=== PATIENT | female | born 1990 | race African-American/Black ===

== ENCOUNTER 2016-07-17 03:59 | Emergency (ER) | payer OTHER ==
[~2016-07-17 03:59] MED LIST: BACTRIM DS TABL1 TA1 PO; DEBROX15 M1 OT; DOXYCYCLINE150 MG PO; ZOFRANODT PO
[2016-07-20 05:22] LABS: CHLAMYDIA TRACH Not Detected (Not Detected); N GONOR Not Detected (Not Detected)
== END 2016-07-17 05:07 | disposition home or self-care (01) ==
LOC: CED 03:59
PROVIDERS: Emergency Medicine
DX: R10.33 Periumbilical pain (principal); N89.8 Other specified noninflammatory disorders of vagina; Z88.0 Allergy status to penicillin
CPT/HCPCS: 84703; 87491; 87591; 87808; 87905; 96372; 99284; J0696

== ENCOUNTER 2016-09-14 14:51 | Emergency (ER) | payer OTHER ==
--- NOTE | ~2016-09-14 | CR63 ---
[facility] A Service of [facility] / [facility] RADIOLOGY TEXT RESULTS PATIENT: SURAJ CHAPMAN LOCATION: [facility] : 86 UNIT #: [id number] AGE: [address]: Anamika Roberts SEX: F ORDER DR: [id number] [facility]. [place], [place] [address] [id number] E MR#: [id number] Acc #: [id number] NAME: SURAJ CHAPMAN : 1990 SEX: F STUDY DATE/TIME: 09/14/2016 14:38 UNIT: [facility] ROOM: STUDY DESCRIPTION: CR Chest 2 View Attending Physician: Anamika Roberts P.A.-C. Ordering Physician: Anamika Roberts P.A.-C. MEDICAL IMAGING REPORT This report is preliminary unless electronic signature is present EXAM Chest x-ray, 09/14. INDICATION Cough, congestion, shortness of air started yesterday. COMPARISON 07/14/2015 FINDINGS PA and lateral examination of the chest upright shows a good expansion of the parenchyma with a normal distribution of the pulmonary vascularity. There is no indication of congestion, effusion, infiltrate, tumor, or nodular density. The pleural reflections and diaphragmatic contours are normal. The cardiac silhouette and mediastinal anatomy is within normal limits. IMPRESSION Normal chest. Dictated by... Pro Swift Jr., M.D. THIS IS AN ELECTRONICALLY VERIFIED REPORT Pro Swift Jr., M.D. at 09/14/2016 7:03 PM GRICELDA/misael TD: 09/14/2016 16:24 JOB #: [id number] MEDICAL IMAGING REPORT [facility] A Service [facility] RADIOLOGY TEXT RESULTS PATIENT: SURAJ CHAPMAN LOCATION: [facility] : 86 UNIT #: [id number] AGE: [address]: Anamika Roberts SEX: F ORDER DR: Page 1 of 1 COPY
== END 2016-09-14 15:23 | disposition home or self-care (01) ==
LOC: CFTX 14:51
DX: J06.9 Acute upper respiratory infection, unspecified (principal); G40.909 Epilepsy, unspecified, not intractable, without status epilepticus; M06.9 Rheumatoid arthritis, unspecified; Z98.890 Other specified postprocedural states; Z79.899 Other long term (current) drug therapy
CPT/HCPCS: 71020; 99283